=== PATIENT | female | born 1950 | race Caucasian/White ===

== ENCOUNTER 2017-12-02 11:55 | Outpatient (CLI) | payer MEDICARE, BC ==
[2017-12-02 12:19] LABS: BILIRUBIN,URINE NEGATIVE (NEGATIVE); GLUCOSE, URINE (UA) NEGATIVE (NEGATIVE); KETONES,URINE (UA) >=80 mg/dL (NEGATIVE); LEUKOCYTE ESTERASE, URINE TRACE (NEGATIVE); NITRITE,URINE POSITIVE (NEGATIVE); OCCULT BLOOD,URINE SMALL (NEGATIVE); PROTEIN,URINE 100 mg/dL (NEGATIVE); UROBILINOGEN,URINE 0.2 (NORMAL) E.U./dL (NORMAL)
[2017-12-02 12:20] LABS: CLARITY,URINE SL. CLOUDY (CLEAR)
[2017-12-02 12:24] LABS: BASOPHILS % (AUTO) 0.4 %; EOSINOPHILS % (AUTO) 0.3 %; HGB - HEMOGLOBIN 13.3 g/dL (12.0-16.0); LYMPHOCYTES # (AUTO) 0.9 10^3/uL (1.5-3.5); LYMPHOCYTES % (AUTO) 12.3 %; MEAN CORPUSCULAR HEMOGLOBIN 32.3 pg (27.0-31.0); MEAN CORPUSCULAR HGB CONC 33.5 g/dL (32.0-36.0); MEAN CORPUSCULAR VOLUME 96.4 fL (81.0-99.0); MEAN PLATELET VOLUME 8.4 fL (7.9-10.8); MONOCYTES # (AUTO) 0.4 10^3/uL (0.0-1.0); MONOCYTES % (AUTO) 5.5 %; NEUTROPHILS # (AUTO) 6.2 10^3/uL (1.5-6.6); NEUTROPHILS % (AUTO) 81.5 %; PLT - PLATELET COUNT 307 10^3/uL (130-450); RED BLOOD COUNT 4.12 10^6/uL (4.20-5.40); RED CELL DISTRIBUTION WIDTH 13.4 % (12.0-15.0); WHITE BLOOD COUNT 7.6 x10^3/uL (4.8-10.8)
[2017-12-02 12:31] LABS: ALBUMIN 4.8 g/dL (3.2-5.5); ALBUMIN/GLOBULIN RATIO 1.7 (1.0-2.2); BILIRUBIN,TOTAL 0.4 mg/dL (0.2-1.0); CALCIUM 9.4 mg/dL (8.5-10.3); CREATININE 0.5 mg/dL (0.4-1.0); TOTAL PROTEIN 7.6 g/dL (6.7-8.2)
== END 2017-12-02 11:56 | disposition home or self-care (01) ==
LOC: LAB 11:55
PROVIDERS: ATTEND Specialist
DX: N39.0 Urinary tract infection, site not specified (principal)
CPT/HCPCS: 36415; 80053; 81003; 85025

== ENCOUNTER 2019-02-04 11:36 | Outpatient (CLI) | payer MEDICARE, BC ==
--- NOTE | 2019-02-04 15:04 | XRAY Report ---
Reason: THORACIC BACK PAIN KYPHOSIS,FM HX OSTEOPOROSIS Procedure Date: 02/04/2019 Accession Number: [id number] Procedure: XRN - ThoracoLumbar 2 View CPT Code: 07965 FULL RESULT: EXAM: LUMBOSACRAL SPINE RADIOGRAPHY EXAM DATE: 02/04/2019 12:03 PM. CLINICAL HISTORY: Thoracic back pain, kyphosis, family history of osteoporosis. COMPARISONS: None. TECHNIQUE: 3 views. FINDINGS: Alignment: There are approximately 3 mm of anterolisthesis of L4 on L5. Bones: Five thj-uqi-gicoqci lumbar vertebral bodies are present. No fractures or bone lesions. Disks: Normal. Disk heights are maintained. Facets: There are severe facet degenerative changes at L5 and moderate to severe degenerative changes at L4. Sacroiliac Joints: Unremarkable. Soft Tissues: Normal. The visualized bowel gas pattern is normal. IMPRESSION: Lower lumbar spine facet arthropathy with anterolisthesis as described. [facility]
== END 2019-02-04 11:37 | disposition home or self-care (01) ==
LOC: DI.N 11:36
PROVIDERS: ATTEND Family Medicine
DX: M54.6 Pain in thoracic spine (principal); M40.209 Unspecified kyphosis, site unspecified; Z82.62 Family history of osteoporosis; M47.896 Other spondylosis, lumbar region
CPT/HCPCS: 72080

== ENCOUNTER 2020-12-12 08:56 | Outpatient (CLI) | payer MEDICARE, BC ==
--- NOTE | 2020-12-12 11:00 | XRAY Report ---
PROCEDURE: Shoulder 3 View RT INDICATIONS: R SHOULDER PX TECHNIQUE: 3 views of the shoulder were acquired. COMPARISON: None. FINDINGS: Bones: No acute fractures or dislocations. No suspicious bony lesions. Visualized ribs appear inta ct. Moderate degenerative changes are seen at the acromioclavicular joint. Soft tissues: No suspicious soft tissue calcifications. IMPRESSION: No acute osseous abnormality. If there is clinical concern or persistent symptoms, addit ional imaging such as repeat radiographs or advanced imaging (e.g. CT, MRI) may be helpful for furthe r evaluation. Reviewed by: Sina Colindres MD on 12/12/2020 10:58 AM PDT Approved by: Sina Colindres MD on 12/12/2020 10:58 AM PDT Station ID: [id number]
== END 2020-12-12 08:57 | disposition home or self-care (01) ==
LOC: DI.N 08:56
PROVIDERS: ATTEND Family Medicine
DX: M25.511 Pain in right shoulder (principal)